=== PATIENT | male | born 1980 | race Hispanic/Latino ===

== ENCOUNTER 2017-01-11 14:03 | Emergency (ER) | payer OTHER ==
[~2017-01-11] VITALS: Ht 175.3 cm; Wt 113.4 kg
[~2017-01-11 14:03] MED LIST: NAPROXEN SOD550 MG PO
[2017-01-11] MEDS ORDERED: AMLODIPINE BESYL5 M1 PO (16:24)
--- NOTE | 2017-01-11 16:29 | ED GENERAL ADULT ---
History of Present Illness General Chief Complaint: Skin Rash/ Abcess Stated Complaint: ABCESS? ON L SIDE OF FACE Source: patient Exam Limitations: no limitations Vital Signs & Intake/Output Vital Signs & Intake/Output Vital Signs Date Time Temp Pulse Resp B/P Pulse O2 O2 Flow FiO2 Ox Delivery Rate 01/11 1921 97.0 74 18 152/89 99 01/11 1706 97.2 72 19 162/98 99 Room Air 01/11 1407 96.9 70 18 158/104 98 Room Air Allergies Coded Allergies: NO KNOWN ALLERGIES (11/08/14) Reconcile Medications Amlodipine Besylate 5 MG TABLET 1 TAB PO DAILY BP (Reported) Doxycycline Hyclate (Vibramycin) 100 MG CAPSULE 1 CAP PO BID INFN Triage Note: C/O BUMP ON LEFT SIDE OF FACE. PT STATES HE WAS PICKING AT IT THINKING IT WAS A PIMPLE BUT ITS GETTING WORSE. APPROX 1 CM ROUND/RAISED BUMP Triage Nurses Notes Reviewed? yes Onset: Abrupt Duration: week(s): Timing: recent history HPI: 01/11/17 5 PM This is a 36-year-old male presents to the emergency department complaining of a cyst to the left side of his face. The patient says he keeps trying to pop it and it only gets redder and more inflamed. The onset of the symptoms have been abrupt, the duration has been approximately 3 weeks, the severity significant as his symptoms required to come to the emergency department for care. He denies any significant past medical history. He does admit to hypertension. He is also status post sofía insertion for fracture in his leg. Past History Travel History Traveled to [place] past 21 day No Medical History Any Pertinent Medical History? see below for history Cardiovascular: hypertension Musculoskeletal: fracture, R FEMUR AND ANKLE FX/SX Surgical History Surgical History: non-contributory Psychosocial History What is your primary language Trinidadian Family History Hx Contributory? No Review of Systems Review of Systems Constitutional: Denies: fever. EENTM: Reports: see HPI. Respiratory: Denies: short of breath. Cardiovascular: Denies: chest pain. GI: Reports: no symptoms. Genitourinary: Reports: no symptoms. Musculoskeletal: Reports: no symptoms. Skin: Reports: see HPI. Neurological/Psychological: Reports: no symptoms. Hematologic/Endocrine: Reports: no symptoms. Physical Exam Physical Exam General Appearance: alert, awake, anxious, mild distress Head: atraumatic Eyes: Bilateral: normal appearance, PERRL, EOMI. Ears, Nose, Throat: normal pharynx Neck: normal inspection, supple, full range of motion Respiratory: normal breath sounds, chest non-tender, no respiratory distress Cardiovascular: regular rate/rhythm Peripheral Pulses: 4+ radial (R), 4+ radial (L) Back: normal range of motion Extremities: normal inspection Neurologic/Psych: no motor/sensory deficits, awake, alert, oriented x 3 Skin: normal color, warm/dry, a 1" x 1", erythematous density, left cheek. Consistent with infected sebaceous cyst. Lymphatic: no anterior cervical kamilah Core Measures ACS in differential dx? No CVA/TIA Diagnosis: No Severe Sepsis Present: No Septic Shock Present: No Progress Differential Diagnoses I considered the following diagnoses in my evaluation of the patient: [Abscess, tumor, infectious sebaceous cyst, lipoma] Plan of Care: Orders Procedure Date/time Status HEAD & NECK CULTURE 01/11 1911 Active PATHOLOGY SPECIMEN 01/11 1911 Active Microbiology 01/11 1930 HEAD/NECK: Head/Neck Culture - RECD 01/11 1930 HEAD/NECK: Gram Stain - RECD Initial ED EKG: none Departure Departure Disposition: HOME OR SELF CARE Condition: Stable Clinical Impression Primary Impression: Infected sebaceous cyst Referrals: SHON THOMPSON APRN (PCP/Family) Departure Forms: Customer Survey General Discharge Information Prescriptions: Current Visit Scripts Doxycycline Hyclate (Vibramycin) 1 CAP PO BID #20 CAP Comments Procedure I&D and excision of left sebaceous cyst. Consent was obtained of the patient was informed that he will have a scar from the incision. Under sterile technique and local anesthesia with 5 mL of 1% lidocaine. The left infected sebaceous cyst was iodine and excised. The area was cleaned with water and peroxide. Packing was placed. The patient tolerated the procedure well without complications. Culture was sent of the abscess. The cyst contents were sent to pathology for analysis, as there was significant debris. The patient will follow-up as needed. Take doxycycline. Return if worse. He was instructed to remove the packing tomorrow and begin warm soaks to the area for the next 5 days. Critical Care Note Critical Care Note Critical Care Time: non-applicable
[2017-01-11] MEDS ORDERED: VIBRAMYCIN100 MG PO (19:14)
[2017-01-11 19:21] VITALS: BP 152/89
== END 2017-01-11 19:23 ==
LOC: ERH 14:03
DX: L72.9 Follicular cyst of the skin and subcutaneous tissue, unspecified (principal)
CPT/HCPCS: 87184; 87070; 87147; 88304

== ENCOUNTER → 2017-12-31 | Day surgery (SDC) | payer OTHER ==
[~2017-12-31] VITALS: Ht 175.3 cm; Wt 99.8 kg
[~2017-12-31] MED LIST changes: +AMLODIPINE BESYL5 M1 PO; +CYCLOBENZAPRINE5 M2 PO; +VIBRAMYCIN100 MG PO
--- NOTE | 2017-12-31 13:59 | Operative Report ---
Operative/Inv Procedure Report Surgery Date: 12/31/17 Name of Procedure: left ureteroscopy with laserlithotripsy and stent placement Pre-Operative Diagnosis: left distal ureteral stone with LLQ pain Post-Operative Diagnosis: same Estimated Blood Loss: less than 50ml Surgeon/Leather Polisher: Sade Tejeda MD Anesthesia: laryngeal mask airway Drains: 6x26cm stent Specimens: stone fragments Complications: none Condition: stable Operative Indication: LLQ pain and left distal ureteral stone Operative/Procedure Note Note: This an operative dictation on patient Bryn Sequeira. He is a 37-year-old male with no prior history of kidney stones. He was having generalized abdominal pain and left lower quadrant pain and was seen in the [facility] ER. On CT scan he was seen to have a distal left ureteral stone. He had mild hydro-behind it. He opted to have intervention as to was finding it difficult to work. He was given the risks benefits and alternatives of ureteroscopy versus shockwave lithotripsy. He opted for ureteroscopy as it was able to be scheduled. All questions were answered. She was identified in the holding area and brought to the operating placed on the operating table in the supine position. Timeout was performed. IV antibiotics were infused. LMA anesthesia was given. He was placed in the dorsolithotomy position and prepped and draped in the standard sterile fashion. A sensor guidewire was attempted to be passed up the ureter however this was not successful. A semirigid ureteroscope was then passed into the distal ureter without difficulty and the Brown stone was easily identified. It was not sharping configuration but smooth with several out pouching was. It was a very hard stone when lasered with the 325 laser fiber. It was able to be fragmented however it required several attempts and fragmentations as the 0 tip basket it was unable to remove the larger fragments. Once all the fragments were 2 sizable fragments that could be removed the 0 tip nitinol basket was then used to remove them. These were in multiple fragments and was sent for stone analysis. A sensor guidewire was placed through the ureter ureteroscope. The cystoscope was then used to place a 6 x 26 cm ureteral stent over the guidewire. He was seen to be in good position fluoroscopically. The wire was pulled and was again seen to be in good position. Patient tolerated procedure well was transferred to the recovery room stable condition. Findings: left distal UVJ stone very hard in consistency Discharge Disposition: PACU
--- NOTE | 2018-01-03 06:22 | RADIOLOGY REPORT ---
EXAMINATION: INTRAOPERATIVE FLUOROSCOPIC GUIDANCE AND ABDOMEN CLINICAL INFORMATION: Cystogram. Distal left ureteral calculus. COMPARISON: December 28, 2017. TECHNIQUE: Fluoroscopic time was utilized in the OR for Dr. Tejeda. Fluoroscopic images were obtained in the AP projection. FINDINGS: Fluoroscopic guidance was provided during a cystogram and left stent placement. A left double-J ureteral stent is identified with the tip overlying the left renal pelvis on the single view provided. FLUOROSCOPY TIME: 1 second of fluoroscopic time was utilized for the entirety of this examination. IMPRESSION: Fluoroscopic guidance was provided during a cystogram and left stent placement. A left double-J ureteral stent is identified with the tip overlying the left renal pelvis on the single view provided.
== END ==
LOC: STS 07:00
DX: N13.2 Hydronephrosis with renal and ureteral calculous obstruction (principal); R10.32 Left lower quadrant pain
CPT/HCPCS: 74018; 80307; C2617; J0690; J1100; J2250; J2405

== ENCOUNTER 2018-05-01 03:20 | Emergency (ER) | payer OTHER ==
[~2018-05-01] VITALS: Ht 167.6 cm; Wt 95.7 kg
--- NOTE | 2018-05-01 03:40 | ED CARDIAC/CP/PALPITATIONS ---
History of Present Illness General Chief Complaint: Palpitations Stated Complaint: PALPITATIONS Source: patient, family, old records Exam Limitations: no limitations Vital Signs & Intake/Output Vital Signs & Intake/Output Vital Signs Date Time Temp Pulse Resp B/P B/P Pulse O2 O2 Flow FiO2 Mean Ox Delivery Rate 05/01 0346 75 16 147/96 98 Room Air 05/01 0335 98 Room Air 05/01 0330 98.5 84 20 158/95 100 Room Air Allergies Coded Allergies: No Known Allergies (12/29/17) Reconcile Medications Cyclobenzaprine HCl 5 MG TABLET 1 TAB PO TIDPRN PAIN (Reported) Triage Nurses Notes Reviewed? yes Onset: Evening Duration: hour(s):, constant, continues in ED Timing: recent history Quality/Severity: moderate, pressure Location: substernal Radiation: no radiation Activities at Onset: rest Prior Chest Pain/Card Workup: no prior cardiac workup Nitro Today/Relief: no nitro taken today Aspirin Today: no aspirin today Associated Symptoms: dizziness, shortness of breath HPI: 1 week prior to admission patient reports episodes of chest pain with stress. He describes his chest pain is tight mild to moderate nonradiating resolving with rest or Flexeril. 4 hours prior to admission he used cocaine and developed the chest pain after an argument with his son. The pain is constant nonradiating associated with shortness of breath anxiety. He denies fever chills nausea vomiting diarrhea abdominal pain headache dysuria rash bleeding. Past History Travel History Traveled to [place] past 21 day No Medical History Any Pertinent Medical History? see below for history Cardiovascular: hypertension Musculoskeletal: fracture, R FEMUR AND ANKLE FX/SX Surgical History Surgical History: non-contributory Psychosocial History What is your primary language Vietnamese Family History Hx Contributory? No Review of Systems Review of Systems Constitutional: Reports: see HPI, malaise. EENTM: Reports: no symptoms. Respiratory: Reports: no symptoms. Cardiovascular: Reports: see HPI, chest pain. GI: Reports: no symptoms. Genitourinary: Reports: no symptoms. Musculoskeletal: Reports: no symptoms. Skin: Reports: no symptoms. Neurological/Psychological: Reports: see HPI, anxiety. Hematologic/Endocrine: Reports: no symptoms. Immunologic/Allergic: Reports: no symptoms. All Other Systems: Reviewed and Negative Physical Exam Physical Exam General Appearance: well developed/nourished, alert, awake, anxious, moderate distress Head: atraumatic, normal appearance Eyes: Bilateral: normal appearance, PERRL, EOMI. Ears, Nose, Throat: normal pharynx, normal ENT inspection, hearing grossly normal Neck: normal inspection, supple, full range of motion, no midline tenderness Respiratory: normal breath sounds, chest non-tender, no respiratory distress, quiet respiration, lungs clear Cardiovascular: regular rate/rhythm, normal peripheral pulses, norml femoral pulses equa Peripheral Pulses: 4+ carotid (R), 4+ carotid (L) Gastrointestinal: normal bowel sounds, soft, non-tender, no organomegaly Back: normal inspection, normal range of motion, no vertebral tenderness Extremities: normal inspection, normal capillary refill, normal range of motion, no edema Neurologic/Psych: no motor/sensory deficits, awake, alert, oriented x 3, normal gait, normal mood/affect, game trapper II-XII nml as tested Reflexes: 2+: bicep (R), bicep (L). Skin: intact, normal color, warm/dry Lymphatic: no anterior cervical kamilah Core Measures ACS in differential dx? No CVA/TIA Diagnosis No Sepsis Present: No Sepsis Focused Exam Completed? No Progress Differential Diagnosis: costochondritis, hyperkalemia, hypovolemia, musculoskeletal pain, pneumonia Plan of Care: Orders Procedure Date/time Status URINE DRUG SCREEN FOR ER ONLY 05/01 035 Complete TROPONIN LEVEL 05/01 338 Complete MAGNESIUM 05/01 033 Complete D-DIMER 05/01 338 Complete COMPREHENSIVE METABOLIC PANEL 05/01 338 Complete CBC WITHOUT DIFFERENTIAL 05/01 338 Complete EKG 05/01 0321 Active Laboratory Tests 05/01/18 0400: Urine Opiates Screen < 100, Methadone Screen < 40, Barbiturate Screen < 60, Ur Phencyclidine Scrn 17.40, Amphetamines Screen < 100, U Benzodiazepines Scrn < 85 , Urine Cocaine Screen > 1000 H, Urine Cannabis Screen > 80.00 H 05/01/18 0350: Anion Gap 15, Estimated GFR > 60, BUN/Creatinine Ratio 12.2, Glucose 97, Calcium 9.4, Magnesium 2.0, Total Bilirubin 0.3, AST 19, ALT 32, Alkaline Phosphatase 76 , Troponin I < 0.01, Total Protein 7.4, Albumin 4.6, Globulin 2.8, Albumin/ Globulin Ratio 1.6, D-Dimer High Sensitivty < 200, CBC w Diff NO MAN DIFF REQ, RBC 4.30 L, MCV 91.7, MCH 31.3 H, MCHC 34.1, RDW 13.6, MPV 9.3, Gran % 76.6 H , Lymphocytes % 19.3 L, Monocytes % 3.6, Eosinophils % 0.1, Basophils % 0.4, Absolute Granulocytes 6.2, Absolute Lymphocytes 1.6, Absolute Monocytes 0.3, Absolute Eosinophils 0, Absolute Basophils 0 Diagnostic Imaging: Viewed by Me: Radiology Read. Discussed w/RAD: Radiology Read. Initial ED EKG: normal axis, normal intervals, normal p-waves, normal QRS complex, normal sinus rhythm, no ST T wave changes Prior EKG: unchanged Rhythm Strip: normal sinus rhythm Departure Departure Time of Disposition: 445 Disposition: HOME OR SELF CARE Condition: Stable Clinical Impression Primary Impression: Chest pain syndrome Secondary Impressions: Anxiety as acute reaction to gross stress, Cocaine abuse Referrals: Arlette Styles APRN (PCP/Family) Vladislav BUI,Guillermo Lewis Call for cardiology follow up. Departure Forms: [employer] Customer Survey DETOX FACILITIES LIST General Discharge Information Critical Care Note Critical Care Note Critical Care Time: non-applicable
[2018-05-01 04:14] LABS: ABSOLUTE BASOPHIL COUNT 0 /CUMM (0.0-0.2); ABSOLUTE EOSINOPHIL COUNT 0 /CUMM (0.0-0.7); ABSOLUTE GRANULOCYTE CT 6.2 /CUMM (1.4-6.5); ABSOLUTE LYMPH COUNT 1.6 /CUMM (1.2-3.4); ABSOLUTE MONOCYTE COUNT 0.3 /CUMM (0.10-0.60); BASOPHIL % 0.4 % (0.0-2.0); EOSINOPHIL % 0.1 % (0-5); GRANULOCYTE % 76.6 % (42.2-75.2); HEMATOCRIT 39.5 % (42-52); MEAN CORPUSCULAR HGB 31.3 PG (27.0-31.0); MEAN CORPUSCULAR HGB CONC 34.1 G/DL (33.0-37.0); MEAN CORPUSCULAR VOLUME 91.7 FL (80.0-94.0); MEAN PLATELET VOLUME 9.3 FL (7.4-10.4); PLATELET COUNT 216 /CUMM (130-400); RBC DISTRIBUTION WIDTH 13.6 % (11.5-14.5); WHITE BLOOD CELL COUNT 8.1 /CUMM (4.8-10.8)
--- NOTE | 2018-05-01 04:35 | RADIOLOGY REPORT ---
EXAMINATION: CHEST 1 VIEW CLINICAL INFORMATION: Chest pain. COMPARISON: May 04, 2016. TECHNIQUE: An AP view of the chest is provided. FINDINGS: The cardiac silhouette is not enlarged. The mediastinal and hilar contours are unremarkable. There are neither pleural effusions nor pneumothoraces. There are no consolidations. The osseous structures are unremarkable. IMPRESSION: No evidence for acute disease.
[2018-05-01 05:05] VITALS: BP 134/92
== END 2018-05-01 05:17 ==
LOC: ERH 03:20
PROVIDERS: Emergency Medicine
DX: R07.1 Chest pain on breathing (principal); F41.1 Generalized anxiety disorder; F43.9 Reaction to severe stress, unspecified; F14.10 Cocaine abuse, uncomplicated
CPT/HCPCS: 71045; 80307; 93005; 93010; 96374; 96375; J1885